=== PATIENT | female | born 1985 | race Hispanic/Latino ===

== ENCOUNTER 2024-05-01 09:31 | Emergency (ER) | payer SELFPAY ==
[~2024-05-01] VITALS: Ht 152.4 cm; Wt 51.0 kg
[2024-05-01 10:21] LABS: BASO% 0.5 % (0-3); EOS% 0.8 % (0-8); HEMATOCRIT 38.6 % (37.0-47.0); HEMOGLOBIN 12.4 g/dl (12.0-16.0); IMMATURE GRANULOCYTES 0.2 % (0.0-5.0); LYMPH% 27.8 % (15-41); MEAN CORPUSCULAR HGB 27.6 pG CALC (26.0-32.0); MEAN CORPUSCULAR HGB CONC 32.1 g/dL CAL (32.0-36.0); MONO% 6.4 % (2-13); NEUT# 4.13 thou/uL (2.00-7.15); NEUT% 64.3 % (42-76); RED BLOOD COUNT 4.49 mill/uL (4.20-5.60); RED CELL DISTRI WIDTH 13.2 % (11.5-15.5)
[2024-05-01 10:23] LABS: URINE BILIRUBIN - DIPSTICK Negative (NEGATIVE); URINE BLOOD DIPSTICK Negative (NEGATIVE); URINE GLUCOSE - DIPSTICK Negative (NEGATIVE); URINE KETONE Negative (NEGATIVE); URINE LEUK ESTERASE Negative (NEGATIVE); URINE NITRITE - DIPSTICK Negative (Negative); URINE PROTEIN - DIPSTICK Negative (NEG-TRACE); URINE SPECIFIC GRAVITY 1.015; URINE UROBILINOGEN - DIPSTICK 0.2 E.U./dL (0.2)
[2024-05-01 10:33] LABS: URINE COLOR Yellow
[2024-05-01 10:33] LABS: ALBUMIN 4.3 g/dL (3.2-5.0); BILIRUBIN, TOTAL 0.4 mg/dL (0.02-1.3); CREATININE 0.6 mg/dL (0.5-1.0); POTASSIUM 3.7 mmol/l (3.5-5.1); TOTAL PROTEIN 7.7 g/dL (6.3-8.2)
[2024-05-01] MEDS ORDERED: cefTRIAXone SODIUM 2 GM in SODIUM CHLORIDE 0.9% 100 ML IV ONE (15:10)
[2024-05-01] MEDS ORDERED: DOXYCYCLINE HYCLATE 100 MG in SODIUM CHLORIDE 0.9% 100 ML IV ONE (15:55)
[2024-05-01 16:04] VITALS: BP 118/101
[2024-05-01 16:16] VITALS: BP 130/83
[2024-05-01 16:30] VITALS: BP 110/66
[2024-05-01] MEDS ORDERED: SODIUM CHLORIDE 0.9% 1,000 ML IV ONE (16:30)
[2024-05-01 16:45] VITALS: BP 123/71
[2024-05-01 17:00] VITALS: BP 113/72
[2024-05-01 17:15] VITALS: BP 118/65
== END 2024-05-01 17:20 | disposition home or self-care (01) | DRG 759 ==
LOC: ED 09:31
PROVIDERS: Family Medicine
DX: N73.9 Female pelvic inflammatory disease, unspecified (principal)
CPT/HCPCS: J0696; Q9967